=== PATIENT | female | born 1970 | race Caucasian/White ===

== ENCOUNTER 2017-08-21 04:08 | Inpatient (IN) | payer OTHER ==
--- NOTE | 2017-08-21 04:36 | ED Physician Documentation ---
PD HPI ABD PAIN - Stated complaint Stated Complaint: ABD PX - Chief complaint Chief Complaint: Abd Pain - History obtained from History obtained from: Patient - History of Present Illness Timing - onset: How many days ago (2-3) Timing - duration: Days Timing - details: Gradual onset, Waxing and waning Pain level max: 10 Pain level now: 10 Quality: Pain Location: All over / everywhere Radiation: Lower back Improved by: Laying still Worsened by: Moving, Palpation Associated symptoms: Fever (subjective (felt as though she had a fever last night but has not taken her temperature at home)), Nausea, Vomiting. No: Diarrhea, Constipation Similar symptoms before: Has not had sx before Recently seen: Not recently seen Review of Systems Constitutional: reports: Fever (subjective), Chills, Sweats Eyes: reports: Reviewed and negative Ears: reports: Reviewed and negative Nose: reports: Reviewed and negative Throat: reports: Reviewed and negative Cardiac: reports: Reviewed and negative Respiratory: reports: Reviewed and negative GI: reports: Abdominal Pain, Nausea, Vomiting. denies: Abdominal Swelling, Constipation, Diarrhea : denies: Dysuria, Frequency Skin: reports: Reviewed and negative Musculoskeletal: reports: Back pain (abdominal pain radiates to the back) Neurologic: reports: Reviewed and negative PD PAST MEDICAL HISTORY - Past Medical History Past Medical History: Yes Endocrine/Autoimmune: HyPOthyroidism - Past Surgical History Past Surgical History: No - Present Medications Home Medications: Ambulatory Orders Medication Instructions Recorded Confirmed Levothyroxine Sodium 175 mcg PO QDAC 08/21/17 08/21/17 [Levothyroxine Sodium] - Allergies Allergies/Adverse Reactions: Allergies Allergy/AdvReac Type Severity Reaction Status Date / Time No Known Drug Allergies Allergy Verified 08/21/17 04:17 - Social History Does the pt smoke?: No Smoking Status: Never smoker Does the pt drink ETOH?: No Does the pt have substance abuse?: No - Immunizations Immunizations are current?: Yes PD ED PE NORMAL - Vitals Vital signs reviewed: Yes - General General: Alert and oriented X 3, Well developed/nourished, Other (obvious painful distress) - HEENT HEENT: Moist mucous membranes - Neck Neck: Supple, no meningeal sign - Cardiac Cardiac: RRR, No murmur - Respiratory Respiratory: No respiratory distress, Clear bilaterally - Abdomen Abdomen: Soft - Back Back: No CVA TTP - Derm Derm: Normal color, Warm and dry - Extremities Extremities: No edema PD ED PE EXPANDED - Abdomen Abdomen: Tender to palpation, Rebound, Guarding, Generalized/diffuse Results - Vitals Vitals: Vital Signs - 24 hr 08/21/17 08/21/17 08/21/17 04:12 05:43 05:58 Temperature 36.4 C L Heart Rate 88 108 H 76 Respiratory 22 20 18 Rate Blood Pressure 140/80 H 126/76 O2 Saturation 99 100 95 08/21/17 07:30 Temperature Heart Rate 84 Respiratory 16 Rate Blood Pressure 105/69 O2 Saturation 95 Oxygen O2 Source Room air - Labs Labs: Laboratory Tests 08/21/17 08/21/17 04:28 04:28 WBC 11.9 H RBC 4.25 Hgb 12.5 Hct 37.0 MCV 87.2 MCH 29.3 MCHC 33.6 RDW 13.7 Plt Count 221 MPV 9.1 Neut # 10.2 H Lymph # 1.1 L Edmonson # 0.6 Eos # 0.0 Baso # 0.0 Absolute Nucleated RBC 0.00 Nucleated RBC % 0.0 Sodium 132 L Potassium 3.5 Chloride 102 Carbon Dioxide 18 L Anion Gap 12.0 BUN 12 Creatinine 0.6 Estimated GFR (MDRD) 107 Glucose 150 H Calcium 8.9 Total Bilirubin 0.4 AST 25 ALT 31 Alkaline Phosphatase 44 Total Protein 7.5 Albumin 4.0 Globulin 3.5 Albumin/Globulin Ratio 1.1 Lipase 11 L - Rads (name of study) CT A/P Radiology: Prelim report reviewed, See rad report PD MEDICAL DECISION MAKING - ED course Complexity details: reviewed results, re-evaluated patient, considered differential, d/w patient Departure - Departure Disposition: ED Transfer to [facility] Clinical Impression: Appendicitis Qualifiers: Appendicitis type: acute appendicitis Acute appendicitis type: with generalized peritonitis Qualified Code(s): K35.2 - Acute appendicitis with generalized peritonitis Condition: Stable
[2017-08-21] MEDS ORDERED: SODIUM CHLORIDE 0.9% 1,000 ML IV STA ×2 (04:42→07:58)
[2017-08-21] MEDS ORDERED: HYDROmorphone 1 MG/ML CARPUJECT IVP STA ×3 (04:42→07:24)
[2017-08-21] MEDS ORDERED: ONDANSETRON 4 MG/2 ML VIAL IVP STA (04:42)
[2017-08-21 04:52] LABS: BASOPHILS % (AUTO) 0.3 %; EOSINOPHILS % (AUTO) 0.1 %; HGB - HEMOGLOBIN 12.5 g/dL (12.0-16.0); LYMPHOCYTES # (AUTO) 1.1 10^3/uL (1.5-3.5); LYMPHOCYTES % (AUTO) 8.9 %; MEAN CORPUSCULAR HEMOGLOBIN 29.3 pg (27.0-31.0); MEAN CORPUSCULAR HGB CONC 33.6 g/dL (32.0-36.0); MEAN CORPUSCULAR VOLUME 87.2 fL (81.0-99.0); MEAN PLATELET VOLUME 9.1 fL (7.9-10.8); MONOCYTES # (AUTO) 0.6 10^3/uL (0.0-1.0); MONOCYTES % (AUTO) 4.8 %; NEUTROPHILS # (AUTO) 10.2 10^3/uL (1.5-6.6); NEUTROPHILS % (AUTO) 85.9 %; PLT - PLATELET COUNT 221 10^3/uL (130-450); RED BLOOD COUNT 4.25 10^6/uL (4.20-5.40); RED CELL DISTRIBUTION WIDTH 13.7 % (12.0-15.0); WHITE BLOOD COUNT 11.9 x10^3/uL (4.8-10.8)
[2017-08-21 04:56] LABS: ALBUMIN/GLOBULIN RATIO 1.1 (1.0-2.2); BILIRUBIN,TOTAL 0.4 mg/dL (0.2-1.0); CALCIUM 8.9 mg/dL (8.5-10.3); CREATININE 0.6 mg/dL (0.4-1.0); TOTAL PROTEIN 7.5 g/dL (6.7-8.2)
[2017-08-21] MEDS ORDERED: IOPAMIDOL-300 100 ML VIAL ONE (05:19)
[2017-08-21] MEDS ORDERED: IOPAMIDOL-300 100 ML VIAL IVP ONE (05:43)
--- NOTE | 2017-08-21 05:54 | CT Report ---
EXAM: CT ABDOMEN AND PELVIS EXAM DATE: 08/21/2017 05:43 AM. CLINICAL HISTORY: Abdominal pain with nausea, vomiting, and constipation. COMPARISONS: None. TECHNIQUE: Routine helical CT imaging was performed through the abdomen and pelvis. IV contrast: 100 ML ISOVUE 300. Enteric contrast: No. Reconstructions: Coronal and sagittal. In accordance with CT protocol optimization, one or more of the following dose reduction techniques w ere utilized for this exam: automated exposure control, adjustment of mA and/or KV based on patient s ize, or use of iterative reconstructive technique. FINDINGS: Lung Bases: Mild bibasilar atelectasis. Liver: No focal lesion identified. Gallbladder/Bile Ducts: Unremarkable. Spleen: Normal. Pancreas: Normal. Adrenal Glands: Normal. Kidneys: Normal. No masses or hydronephrosis. Peritoneal Cavity/Bowel: Mild amount of free fluid in the abdomen and pelvis. Small amount of free in traperitoneal air. No diverticulitis seen. There may be some colonic diverticula, however. No small b owel obstruction. Normal-sized mesenteric and retroperitoneal lymph nodes. Probable dilated inflamed appendix measuring up to 1.7 cm. Suspect appendiceal perforation. Organized abscess is not seen. Pelvic Organs: Normal. The bladder and visualized pelvic organs are within normal limits. Vasculature: Mild atherosclerosis. No aneurysm seen. Bones: Incomplete segmentation at T10-T11. Other: None. IMPRESSION: 1. There appears to be a dilated inflamed appendix measuring up to 1.7 cm consistent with appendiciti s. 2. Free fluid seen in the abdomen and pelvis. Free intraperitoneal air, including bubbles of air unde r the right hemidiaphragm. Findings are presumably due to perforated appendicitis. 3. Organized abscess is not seen. RADIA The above findings were discussed with Dr. Marino by Dr. Feng Springer at 05:50 hrs on 08/21/17. Referring Provider Line: [phone] SITE ID: [id number]
[2017-08-21] MEDS ORDERED: PIPERACILLIN/TAZOBACTAM 3.375 GM in SODIUM CHLORIDE 0.9% MINIBAG 100 ML IV STA (06:04)
[2017-08-21] MEDS ORDERED: metroNIDAZOLE 500 MG/100 ML 500 MG/100 ML BAG IV STA (06:04)
--- NOTE | 2017-08-21 07:36 | CONSULTATION NOTE ---
Referring Provider Name of Referring Provider:: Dr. Bipin Marino Consult Date: 08/21/17 Chief Complaint - Chief Complaint Chief Complaint: Unremitting right lower quadrant pain History of Present Illness - Admitted From Admitted From:: ED [facility] - History Obtained From Records Reviewed: Yes History obtained from: Patient and Dr. Marino Exam Limitations: None. - History of Present Illness HPI Comment/Other: Dr. Bipin Marino asked that I see this very pleasant 39-year-old female after CT scan showed ruptured appendicitis as a cause of her right lower quadrant pain. The patient states that the pain started on and she thought it was just gas. It did not improve and in fact worsened and localized to the right lower quadrant. There is no significant nausea and vomiting but there was some anorexia. She never had this pain before. There is no hematemesis, melena, or hematochezia. There is no dysuria or gynecologic issues. History - Past Medical History Cardiovascular: reports: None Respiratory: reports: None Neuro: reports: None Endocrine/Autoimmune: reports: HyPOthyroidism GI: reports: None GEOGRAPHY INSTRUCTOR: reports: None : reports: None HEENT: reports: None Psych: reports: None Musculoskeletal: reports: None Derm: reports: None MRSA Hx?: No Meds/Allgy - Home Medications Home Medications: Ambulatory Orders Medication Instructions Recorded Confirmed Levothyroxine Sodium 175 mcg PO QDAC 08/21/17 08/21/17 [Levothyroxine Sodium] - Allergies Allergies/Adverse Reactions: Allergies Allergy/AdvReac Type Severity Reaction Status Date / Time No Known Drug Allergies Allergy Verified 08/21/17 04:17 Review of Systems - Constitutional Constitutional: reports: Malaise. denies: Fatigue, Fever - Eyes Eyes: denies: Pain - Ears, Nose & Throat Ears, Nose & Throat: denies: Ear pain, Hearing loss - Cardiovascular Cariovascular: denies: Irregular heart rate, Palpitations, Chest pain - Respiratory Respiratory: denies: Cough - Gastrointestinal Gastrointestinal: reports: Abdominal pain. denies: Constipation, Diarrhea, Black stools, Bloody stools, Bile emesis, Romel blood emesis, Coffee grounds emesis - Genitourinary Genitourinary: denies: Dysuria - Musculoskeletal Musculoskeletal: denies: Muscle pain - Integumentary Integumentary: reports: Dryness. denies: Rash - Neurological Neurological: denies: General weakness, Focal weakness Exam - Vital Signs Reviewed Vital Signs: Yes Vital Signs: Vital Signs x48h Temp Pulse Resp BP Pulse Ox 08/21/17 05:58 76 18 126/76 95 08/21/17 05:43 108 H 20 100 08/21/17 04:12 36.4 C L 88 22 140/80 H 99 - Physical Exam General Appearance: positive: No acute distress, Other (Very dehydrated.) Eyes Bilateral: positive: No lid inflammation, Conjunctivae nml, No scleral icterus ENT: positive: Dry mucous membranes Neck: positive: Trachea midline Respiratory: positive: Chest non-tender, No respiratory distress, Breath sounds nml Cardiovascular: positive: Regular rate & rhythm Abdomen: positive: Tenderness (At McBurney's point and just slightly below this. Definitely peritoneal findings with some guarding.) Skin: positive: Color nml Extremities: positive: Nml appearance Neurologic/Psychiatric: positive: Oriented x3 Conclusion/Plan - Diagnosis Diagnosis: Acute perforated appendicitis - Plan Plan: Laparoscopic appendectomy, possible open appendectomy, probable placement of drain. The indications, procedure, alternatives including no surgery, possible risks including infection (deep or superficial), bleeding requiring transfusion (with all of its risks), and were fully explained to the patient and all questions answered. I also explained the pathophysiology. I explained that following the surgery I did not want her lifting anything over 15 pounds for 6 weeks to allow for optimal healing and to decrease the likelihood that a hernia would occur. All questions were fully answered. Verbal and written consent was obtained. The patient, in preparation for surgery will be nothing by mouth , and has received 3.375 g of Zosyn and 250 mg Flagyl. I asked her to contact me with any surgical questions and her concerns and she stated that she would. I asked her to let me know if there is any way we can make her stay at [facility] more comfortable and she stated that she would let me know. Attestation: For perforated appendicitis studies in the late showed that the average length of stay for laparoscopic appendectomy for perforated appendicitis was slightly over 5 days whereas the average length of stay for an open appendectomy was slightly over 7 days. Many of these studies were then repeated in the 20-teens and found that the average length of stay for laparoscopic appendectomy for perforated appendix was in the neighborhood of about 72 hours. This however came with a 20% chance of significant morbidity including abscess and prolonged surgical ileus. Depending on the operative findings and her postoperative course it is not unreasonable to surmise that she will stay less than 96 hours. And 96 hours, if she is still in the hospital , I will reevaluate for discharge or transfer. 45 minutes of [id number] time spent with the patient, over 80% in discussion and coordination of her care Shayla disclaimer: This document was created in part using voice recognition technology. Because of the inherent limitations of the system ([employer] Dictate user manual states that the licensee understands that speech recognition is a statistical process and that recognition errors are inherent in the process), occasional same sounding word substitutions and grammatical errors do occur and persist despite proofreading. Please read this document for context. - Lab Results Lab results reviewed: Yes Soy Bones: 08/21/17 04:28 08/21/17 04:28 - Diagnostic Imaging Results Diagnostic Imaging Results: positive: Final report reviewed, Read independently
[2017-08-21] MEDS ORDERED: BUPIVACAINE 0.5%-EPI 1:200000 PF 10 ML VIAL ONE (08:13)
[2017-08-21] MEDS ORDERED: SODIUM CHLORIDE 0.9% 1,000 ML IV ONE (08:24)
[2017-08-21] MEDS ORDERED: ROCURONIUM 50 MG/5 ML VIAL IVP ONE (09:00)
[2017-08-21] MEDS ORDERED: LIDOCAINE-MPF 2% 5 ML VIAL IM ONE (09:00)
[2017-08-21] MEDS ORDERED: ePHEDrine 50 MG/ML AMP IVP ONE (09:00)
[2017-08-21] MEDS ORDERED: ACETAMINOPHEN 1,000 MG/100 ML 100 ML IV ONE (09:00)
[2017-08-21] MEDS ORDERED: NEOSTIGMINE 1 MG/1 ML 10 ML MDV IVP ONE (09:00)
[2017-08-21] MEDS ORDERED: fentaNYL 250 MCG/5 ML VIAL IVP ONE (09:00)
[2017-08-21] MEDS ORDERED: PROPOFOL 200 MG/20 ML VIAL IVP ONE (09:00)
[2017-08-21] MEDS ORDERED: GLYCOPYRROLATE 1 MG/5 ML VIAL IVP ONE (09:00)
[2017-08-21] MEDS ORDERED: DEXAMETHASONE 4 MG/ML VIAL IVP ONE (09:00)
[2017-08-21] MEDS ORDERED: SUCCINYLCHOLINE 200 MG/10 ML VIAL IVP ONE (09:00)
[2017-08-21] MEDS ORDERED: BUPIVACAINE 0.5%-EPI 1:200000 PF 30 ML VIAL SUBQ ONE ×2 (09:03)
[2017-08-21] MEDS ORDERED: LACTATED RINGERS 1,000 ML IV ONE (09:20)
--- NOTE | 2017-08-21 09:57 | OPERATIVE REPORT ---
Operative Report - General Admit Date: 08/21/17 Planned Procedure: Laparoscopic appendectomy and placement of drain, possible open appendectom Pre-Op Diagnosis: Perforated appendicitis with peritonitis Procedure Performed: Laparoscopic appendectomy and placement of drain Post Op Diagnosis: Perforated acute appendicitis with fecal peritonitis - Procedure Note Primary Surgeon: Shadi Garcia MD Anesthesia Provider: Mark Linton CRNA Anesthesia Technique: General ET tube, Local (20 mL of half percent Marcaine with epinephrine) IV Fluids (mL): 1,200 Estimated Blood Loss (mL): 5 Drain/Tube Type: London drain (19 Yi London drain along the left right pelvic and abdominal wall) Complications: None. - Other Other Information/Narrative: OPERATIVE DESCRIPTION/REPORT: After verbal and written informed consent was obtained detailing the risks of infection, bleeding requiring transfusion with its risks, and , and after I met with the patient confirming the surgery and the site of the surgery, the patient was brought to the operative suite and placed supine on the operating table. Great care was taken to avoid pressure points to prevent pressure necrosis or nerve injury. Monitoring devices were applied along with TEDs and pneumatic compressive stockings (to prevent DVT). The patient received preoperative antibiotics for surgical prophylaxis. Mark Linton CRNA sedated and anesthetized the patient for the entire procedure. The patient was prepped and draped in the usual sterile manner. With the patient draped my initials were clearly visible. A "time in" then confirmed that the patient was identified with 3 identifiers (name, date and medical record number), the history and physical was in the chart, the signed consent confirming the procedure was in the chart, the patient was in the correct position, the aforementioned prophylactic measures were in place or given, we had the correct personnel and equipment to complete the procedure and that anesthesia, surgery and nursing were given an opportunity to express any concerns. With the agreement of everyone in the room, we proceeded with the operation. A 2 cm umbilical midline incision was made. The fascia was then cleared of subcutaneous tissue using a tonsil clamp. A 2 cm incision was then made in the fascia gaining entry into the abdominal cavity without incident. A 12 mm blunt tipped balloon tipped Efrain port was placed into the abdomen and the balloon inflated to keep it in place. The pneumoperitoneum was then established using carbon dioxide insufflation to a steady state pressure of 12 mmHg. Two additional 5 mm ports were placed in the midline above and below the umbilicus. The patient was then rotated slightly to their left and slightly head down ( Trendelenberg). There was a massive amount of thick green purulence throughout the abdomen and a photograph was taken of this. It extended from the pelvis to above the liver. The appendix was matted and adhesed down to the cecum and with traction and counter-traction the mesentery was visualized. The mesentary was transected using serial application of the Ligasure thus freeing up the appendix. When the end of the appendix was lifted it revealed the base of the appendix where it was draining into the cecum as well as the hole in the appendix and the appendicolith that had fallen out of the hole. The base of the appendix and mesentery were then stapled and transected using a laparoscopic vascular stapler. Visualization of the staple line revealed absolutely no bleeding or leak of bowel contents. The appendix and the appendicotih was then placed into an endopouch for the remainder of the case. The patient was then rotated to lie flat. No cultures were done of the purulence because the patient had leaked stool into the peritoneal cavity and cultures would have come back positive for colonic rito. Because of this massive contamination, the abdomen was copiously irrigated with 3 liters of first normal saline and then lactated ringers. By the end the effluent was returning clear. The fascia and skin were then injected with the 20 cc of % marcaine with epinephrine for pain control. A 19 Fr London drain was inserted into the lower 5 mm port and the port removed. Laparoscopically the drain was placed into the pelvis and the going up the right abdominal wall along the white line of Toldt. The drain was secured to the skin with a 3-0 Nylon which was Issa-sandaled about the drain. The insufflation was released and the ports removed. With the removal of the umbilical port the Endopouch containing the appendix and the appendicolith was also removed. The fascial defect was then approximated using 0-Vicryl suture in a simple interrupted manner taking care to bury the knots. The skin incisions were approximated with 4-0 Monocryl in a subcuticular fashion. The surgical prep was removed, and the skin closures were strengthened with Dermabond. At this point a time out was performed that confirmed that all the counts were correct, the procedure that was performed, the blood loss, the urine output, the IV fluids administered, and the patients condition. Having tolerated the procedure well, the patient was subsequently extubated and taken to recovery room in good and stable condition. Dragon disclaimer: This document was created in part using voice recognition technology. Because of the inherent limitations of the system ([employer] Dictate user manual states that the licensee understands that speech recognition is a statistical process and that recognition errors are inherent in the process), occasional same sounding word substitutions and grammatical errors do occur and persist despite proofreading. Please read this document for context.
[2017-08-21 09:59] LABS: HCG UR QUAL NEGATIVE
[2017-08-21] MEDS: D5NS W/20 MEQ KCL 1,000 ML IV SCH (11:35)
[2017-08-21] MEDS: PIPERACILLIN/TAZOBACTAM 3.375 GM in SODIUM CHLORIDE 0.9% MINIBAG 100 ML IV SCH ×2 (11:56→18:17)
[2017-08-21] MEDS: metroNIDAZOLE 500 MG/100 ML 500 MG/100 ML BAG IV SCH ×2 (14:11→22:01)
[2017-08-21] MEDS: GENTAMICIN 350 MG in SODIUM CHLORIDE 0.9% 100ML 100 ML IV SCH (14:59)
[2017-08-21] MEDS: HYDROmorphone 1 MG/ML CARPUJECT IVP PRN ×3 (15:52→20:54)
[2017-08-21] MEDS: SODIUM CHLORIDE FLUSH 0.9% 10 ML SYRINGE IVP SCH (15:52)
[2017-08-21] MEDS: ONDANSETRON 4 MG/2 ML VIAL IVP PRN (22:01)
[2017-08-22] MEDS: HYDROmorphone 1 MG/ML CARPUJECT IVP PRN ×5 (00:18→21:58)
[2017-08-22] MEDS: PIPERACILLIN/TAZOBACTAM 3.375 GM in SODIUM CHLORIDE 0.9% MINIBAG 100 ML IV SCH ×5 (00:20→23:58)
[2017-08-22] MEDS: D5NS W/20 MEQ KCL 1,000 ML IV SCH ×2 (00:21→12:08)
[2017-08-22] MEDS: SODIUM CHLORIDE FLUSH 0.9% 10 ML SYRINGE IVP SCH ×4 (00:22→23:59)
[2017-08-22 05:57] LABS: BASOPHILS % (AUTO) 0.2 %; EOSINOPHILS % (AUTO) 0.2 %; HGB - HEMOGLOBIN 10.7 g/dL (12.0-16.0); LYMPHOCYTES # (AUTO) 0.9 10^3/uL (1.5-3.5); LYMPHOCYTES % (AUTO) 8.9 %; MEAN CORPUSCULAR HEMOGLOBIN 28.6 pg (27.0-31.0); MEAN CORPUSCULAR HGB CONC 32.2 g/dL (32.0-36.0); MEAN CORPUSCULAR VOLUME 88.8 fL (81.0-99.0); MEAN PLATELET VOLUME 8.9 fL (7.9-10.8); MONOCYTES # (AUTO) 0.6 10^3/uL (0.0-1.0); MONOCYTES % (AUTO) 6.1 %; NEUTROPHILS # (AUTO) 8.6 10^3/uL (1.5-6.6); NEUTROPHILS % (AUTO) 84.6 %; PLT - PLATELET COUNT 215 10^3/uL (130-450); RED BLOOD COUNT 3.73 10^6/uL (4.20-5.40); RED CELL DISTRIBUTION WIDTH 14.3 % (12.0-15.0); WHITE BLOOD COUNT 10.2 x10^3/uL (4.8-10.8)
[2017-08-22 06:07] LABS: ALBUMIN 2.8 g/dL (3.2-5.5); ALBUMIN/GLOBULIN RATIO 0.9 (1.0-2.2); BILIRUBIN,TOTAL 0.5 mg/dL (0.2-1.0); CALCIUM 7.4 mg/dL (8.5-10.3); CREATININE 0.7 mg/dL (0.4-1.0); TOTAL PROTEIN 5.8 g/dL (6.7-8.2)
[2017-08-22] MEDS: metroNIDAZOLE 500 MG/100 ML 500 MG/100 ML BAG IV SCH ×3 (06:14→21:58)
[2017-08-22 13:04] LABS: BILIRUBIN,URINE NEGATIVE (NEGATIVE); GLUCOSE, URINE (UA) NEGATIVE (NEGATIVE); KETONES,URINE (UA) TRACE mg/dL (NEGATIVE); LEUKOCYTE ESTERASE, URINE NEGATIVE (NEGATIVE); NITRITE,URINE NEGATIVE (NEGATIVE); OCCULT BLOOD,URINE SMALL (NEGATIVE); PROTEIN,URINE 30 mg/dL (NEGATIVE); UROBILINOGEN,URINE 0.2 (NORMAL) E.U./dL (NORMAL)
[2017-08-22 13:05] LABS: CLARITY,URINE SL. CLOUDY (CLEAR)
[2017-08-22 13:15] LABS: BACTERIA,URINE Moderate /HPF (None Seen); RBC,URINE 0-5 /HPF (0-5); SQUAMOUS EPITHELIAL CELL,UR MOD Squamous (<= Few)
--- NOTE | 2017-08-22 13:53 | PROVIDER PROGRESS NOTE ---
Subjective - General Admit Date: 08/21/17 Procedure Date: 08/21/17 Post Op Days: 1 Procedure Performed: Laparoscopic appendectomy with placement drain - Review of Systems Wound/Incisions: positive: Other (Slight ecchymosis.) General: positive: Malaise. negative: Appetite HEENT: positive: No symptoms Pulmonary: positive: No symptoms Cardiovascular: positive: No symptoms Gastrointestinal: positive: Abdominal pain (Improved.) Genitourinary: positive: Retention (Measured 300 mL urinated 200 mL. Will follow.) Musculoskeletal: positive: No symptoms Skin: positive: No symptoms Psychiatric: positive: No symptoms Objective - Patient Data Reviewed Vital Signs: Yes Vital Signs: Vital Signs x48h Temp Pulse Resp BP Pulse Ox 08/22/17 07:27 37.3 C 80 19 96/56 L 100 Weight: Weight 08/20/17 08/21/17 08/22/17 23:59 23:59 23:59 Weight (kg) 49.8 kg Intake & Output: Intake and Output Totals x24h 08/20/17 08/21/17 08/22/17 23:59 23:59 23:59 Intake Total 3858.75 1375 Output Total 280 665 Balance 3578.75 710 - Lab Results Lab Results: 08/22/17 05:50 08/22/17 05:50 Other Lab Results: Lab Results x24hrs 08/22/17 08/22/17 08/22/17 Range/Units 13:01 05:50 05:50 WBC 10.2 (4.8-10.8) x10^3/uL RBC 3.73 L (4.20-5.40) 10^6/uL Hgb 10.7 L (12.0-16.0) g/dL Hct 33.2 L (37.0-47.0) % MCV 88.8 (81.0-99.0) fL MCH 28.6 (27.0-31.0) pg MCHC 32.2 (32.0-36.0) g/dL RDW 14.3 (12.0-15.0) % Plt Count 215 (130-450) 10^3/uL MPV 8.9 (7.9-10.8) fL Neut # 8.6 H (1.5-6.6) 10^3/uL Lymph # 0.9 L (1.5-3.5) 10^3/uL [place] # 0.6 (0.0-1.0) 10^3/uL Eos # 0.0 (0.0-0.7) 10^3/uL Baso # 0.0 (0.0-0.1) 10^3/uL Absolute Nucleated RBC 0.00 x10^3/uL Nucleated RBC % 0.0 /100WBC Sodium 133 L (135-145) mmol/L Potassium 4.3 (3.5-5.0) mmol/L Chloride 108 (101-111) mmol/L Carbon Dioxide 21 (21-32) mmol/L Anion Gap 4.0 L (6-13) BUN 12 (6-20) mg/dL Creatinine 0.7 (0.4-1.0) mg/dL Estimated GFR (MDRD) 89 (>89) Glucose 112 H (70-100) mg/dL Calcium 7.4 L (8.5-10.3) mg/dL Total Bilirubin 0.5 (0.2-1.0) mg/dL AST 18 (10-42) IU/L ALT 19 (10-60) IU/L Alkaline Phosphatase 25 L (42-121) IU/L Total Protein 5.8 L (6.7-8.2) g/dL Albumin 2.8 L (3.2-5.5) g/dL Globulin 3.0 (2.1-4.2) g/dL Albumin/Globulin Ratio 0.9 L (1.0-2.2) Urine Color DARK YELLOW Urine Clarity SL. CLOUDY (CLEAR) Urine pH 5.0 (5.0-7.5) PH Ur Specific [employer] [place] >=1.030 H (1.002-1.030) Urine Protein 30 H (NEGATIVE) mg/dL Urine Glucose (UA) NEGATIVE (NEGATIVE) mg/dL Urine Ketones TRACE (NEGATIVE) mg/dL Urine Occult Blood SMALL H (NEGATIVE) Urine Nitrite NEGATIVE (NEGATIVE) Urine Bilirubin NEGATIVE (NEGATIVE) Urine Urobilinogen 0.2 (NORMAL) (NORMAL) E.U./dL Ur Leukocyte Esterase NEGATIVE (NEGATIVE) Urine RBC 0-5 (0-5) /HPF Urine WBC 0-3 (0-5) /HPF Ur Squamous Epith Cells MOD Squamous H (<= Few) Urine Bacteria Moderate H (None Seen) /HPF Ur Microscopic Review INDICATED Urine Culture Comments NOT INDICATED Random Gentamicin ug/mL 08/21/17 Range/Units 22:05 WBC (4.8-10.8) x10^3/uL RBC (4.20-5.40) 10^6/uL Hgb (12.0-16.0) g/dL Hct (37.0-47.0) % MCV (81.0-99.0) fL MCH (27.0-31.0) pg MCHC (32.0-36.0) g/dL RDW (12.0-15.0) % Plt Count (130-450) 10^3/uL MPV (7.9-10.8) fL Neut # (1.5-6.6) 10^3/uL Lymph # (1.5-3.5) 10^3/uL [place] # (0.0-1.0) 10^3/uL Eos # (0.0-0.7) 10^3/uL Baso # (0.0-0.1) 10^3/uL Absolute Nucleated RBC x10^3/uL Nucleated RBC % /100WBC Sodium (135-145) mmol/L Potassium (3.5-5.0) mmol/L Chloride (101-111) mmol/L Carbon Dioxide (21-32) mmol/L Anion Gap (6-13) BUN (6-20) mg/dL Creatinine (0.4-1.0) mg/dL Estimated GFR (MDRD) (>89) Glucose (70-100) mg/dL Calcium (8.5-10.3) mg/dL Total Bilirubin (0.2-1.0) mg/dL AST (10-42) IU/L ALT (10-60) IU/L Alkaline Phosphatase (42-121) IU/L Total Protein (6.7-8.2) g/dL Albumin (3.2-5.5) g/dL Globulin (2.1-4.2) g/dL Albumin/Globulin Ratio (1.0-2.2) Urine Color Urine Clarity (CLEAR) Urine pH (5.0-7.5) PH Ur Specific [employer] (1.002-1.030) Urine Protein (NEGATIVE) mg/dL Urine Glucose (UA) (NEGATIVE) mg/dL Urine Ketones (NEGATIVE) mg/dL Urine Occult Blood (NEGATIVE) Urine Nitrite (NEGATIVE) Urine Bilirubin (NEGATIVE) Urine Urobilinogen (NORMAL) E.U./dL Ur Leukocyte Esterase (NEGATIVE) Urine RBC (0-5) /HPF Urine WBC (0-5) /HPF Ur Squamous Epith Cells (<= Few) Urine Bacteria (None Seen) /HPF Ur Microscopic Review Urine Culture Comments Random Gentamicin 3.4 ug/mL - Current Medications Current Medications: Current Medications Generic Name Dose Route Start Last Admin Trade Name Freq PRN Reason Stop Dose Admin Hydromorphone HCl 1 mg 08/21/17 09:54 08/22/17 08:55 Dilaudid Inj Carp IVP 1 mg Q1HR PRN Administration PAIN Potassium Chloride/Dextrose/Sod Cl 1,000 mls @ 100 mls/hr 08/21/17 11:30 12:08 IV 100 mls/hr .Q10H REINALDO Administration Gentamicin Sulfate 350 mg/ 108.75 mls @ 108.75 mls/hr 08/21/17 14:00 16:13 Sodium Chloride IV 08/27/17 14:59 Infused Q24H REINALDO Infusion Protocol Metronidazole 500 mg in 100 mls @ 100 mls/hr 08/21/17 14:00 08/22/17 13:03 Flagyl 500 Mg/100 Ml IV 100 mls/hr Q8HR REINALDO Administration Piperacillin Sod/Tazobactam 100 mls @ 200 mls/hr 08/21/17 12:00 08/22/17 13: 05 Sod 3.375 gm/ Sodium Chloride IV Infused Q6HR REINALDO Infusion Ondansetron HCl 4 mg 08/21/17 09:53 08/21/17 22:01 Zofran Inj IVP 4 mg Q4HR PRN Administration Nausea / Vomiting Sodium Chloride 10 ml 08/21/17 17:00 08/22/17 00:22 Normal Saline Flush 0.9% IVP Not Given 0100,0900,1700 [facility] - Physical Exam Wound/Incisions: positive: Other (Ecchymosis. Drain is draining light green thin fluid.) General Appearance: positive: No acute distress Eyes Bilateral: positive: No lid inflammation, Conjunctivae nml, No scleral icterus ENT: positive: Dry mucous membranes Neck: positive: Trachea midline Respiratory: positive: Chest non-tender, No respiratory distress, Breath sounds nml Cardiovascular: positive: Regular rate & rhythm Abdomen: positive: Tenderness (Incisional and better than before.) Skin: positive: Color nml Extremities: positive: Non-tender, Nml appearance Neurologic/Psychiatric: positive: Oriented x3 Impression/Plan - Problem List Problem List: D1 s/p laparoscopic appendectomy and placement of drain for perforated appendicitis with fecalent peritonitis 1) FEN Continue IVF and clear liquid diet as tolerated. Slightly dehydrated clinically. 2) ID Continue triple antibiotics. D2/10 Zosyn/Gent/Flagyl. Drainage is mildly concerning. Patient is at a 20% risk of morbidity due to perforation. 3) Pain Controlled with current regimen. 4) Some retention - may be due to Dilaudid or perforated appendix with fecalent peritonitis. Expect it will get better with time. 5) DVT Ambulation should prevent. Will continue to follow.
[2017-08-22] MEDS: GENTAMICIN 350 MG in SODIUM CHLORIDE 0.9% 100ML 100 ML IV SCH (14:25)
[2017-08-22] MEDS: ACETAMINOPHEN 1,000 MG/100 ML 100 ML IV SCH ×2 (18:38→23:28)
[2017-08-23] MEDS: D5NS W/20 MEQ KCL 1,000 ML IV SCH ×3 (03:26→20:19)
[2017-08-23] MEDS: ONDANSETRON 4 MG/2 ML VIAL IVP PRN ×3 (03:51→19:06)
[2017-08-23] MEDS: HYDROmorphone 1 MG/ML CARPUJECT IVP PRN ×4 (03:51→19:53)
[2017-08-23] MEDS: ACETAMINOPHEN 1,000 MG/100 ML 100 ML IV SCH ×4 (04:55→22:39)
[2017-08-23] MEDS: PIPERACILLIN/TAZOBACTAM 3.375 GM in SODIUM CHLORIDE 0.9% MINIBAG 100 ML IV SCH ×3 (05:21→18:57)
[2017-08-23] MEDS: metroNIDAZOLE 500 MG/100 ML 500 MG/100 ML BAG IV SCH ×3 (05:54→21:35)
[2017-08-23] MEDS: SODIUM CHLORIDE FLUSH 0.9% 10 ML SYRINGE IVP SCH ×2 (10:57→14:52)
[2017-08-23] MEDS: GENTAMICIN 350 MG in SODIUM CHLORIDE 0.9% 100ML 100 ML IV SCH (13:46)
--- NOTE | 2017-08-23 15:29 | PROVIDER PROGRESS NOTE ---
Subjective - General Admit Date: 08/21/17 Procedure Date: 08/21/17 Post Op Days: 2 Procedure Performed: Laparoscopic appendectomy with placement drain - Review of Systems Wound/Incisions: positive: Other (Ecchymosis. Drain is draining light green thin fluid.) Drain Type: [place] Drain Output Description: Serous Approximate mls Output: 320 General: positive: Other (Easier to get out of bed today as opposed to yesterday.). negative: Appetite HEENT: positive: No symptoms Pulmonary: positive: No symptoms Cardiovascular: positive: No symptoms Gastrointestinal: positive: Abdominal pain (Improved.), Flatus (Small amount.) Genitourinary: positive: Retention (Measured 300 mL urinated 200 mL. Will follow.) Musculoskeletal: positive: No symptoms Skin: positive: No symptoms Psychiatric: positive: No symptoms Objective - Patient Data Reviewed Vital Signs: Yes Vital Signs: Vital Signs x48h Temp Pulse Resp BP Pulse Ox 08/23/17 07:44 36.8 C 69 20 96/59 L 97 Weight: Weight 08/21/17 08/22/17 08/23/17 23:59 23:59 23:59 Weight (kg) 49.8 kg Intake & Output: Intake and Output Totals x24h 08/21/17 08/22/17 08/23/17 23:59 23:59 23:59 Intake Total 3858.75 3803.75 900 Output Total 280 1405 1320 Balance 3578.75 2398.75 -420 - Lab Results Lab Results: 08/22/17 05:50 08/22/17 05:50 - Current Medications Current Medications: Current Medications Generic Name Dose Route Start Last Admin Trade Name Freq PRN Reason Stop Dose Admin Hydromorphone HCl 1 mg 08/21/17 09:54 08/23/17 14:51 Dilaudid Inj Carp IVP 1 mg Q1HR PRN Administration PAIN Potassium Chloride/Dextrose/Sod Cl 1,000 mls @ 100 mls/hr 08/21/17 11:30 03:26 IV 100 mls/hr .Q10H REINALDO Administration Gentamicin Sulfate 350 mg/ 108.75 mls @ 108.75 mls/hr 08/21/17 14:00 13:46 Sodium Chloride IV 08/27/17 14:59 108.75 mls/hr Q24H REINALDO Administration Protocol Metronidazole 500 mg in 100 mls @ 100 mls/hr 08/21/17 14:00 08/23/17 06:55 Flagyl 500 Mg/100 Ml IV Infused Q8HR REINALDO Infusion Piperacillin Sod/Tazobactam 100 mls @ 200 mls/hr 08/21/17 12:00 08/23/17 12: 52 Sod 3.375 gm/ Sodium Chloride IV Infused Q6HR REINALDO Infusion Acetaminophen 100 mls @ 400 mls/hr 08/22/17 17:00 08/23/17 12:23 Ofirmev IV Not Given Q6H REINALDO Ondansetron HCl 4 mg 08/21/17 09:53 08/23/17 10:56 Zofran Inj IVP 4 mg Q4HR PRN Administration Nausea / Vomiting Sodium Chloride 10 ml 08/21/17 17:00 08/23/17 14:52 Normal Saline Flush 0.9% IVP 10 ml 0100,0900,1700 REINALDO Administration - Physical Exam Wound/Incisions: positive: Healing well, Other (Slight ecchymosis still present. ) General Appearance: positive: No acute distress Eyes Bilateral: positive: No lid inflammation, Conjunctivae nml, No scleral icterus ENT: positive: Dry mucous membranes Neck: positive: Trachea midline Respiratory: positive: Chest non-tender, No respiratory distress, Breath sounds nml Cardiovascular: positive: Regular rate & rhythm Abdomen: positive: Nml bowel sounds, Other (Slight distention.) Skin: positive: Color nml Extremities: positive: Nml appearance Neurologic/Psychiatric: positive: Oriented x3 Impression/Plan - Problem List Problem List: D2 s/p laparoscopic appendectomy and placement of drain for perforated appendicitis with fecalent peritonitis 1) FEN Continue IVF and general diet as tolerated. Explained that I was okay if she ate nothing. Slightly dehydrated clinically. 2) ID Continue triple antibiotics. D3/10 Zosyn/Gent/Flagyl. Drainage is mildly concerning. Patient is at a 20% risk of morbidity due to perforation. Check CBC in AM. 3) Pain Controlled with current regimen. 4) Some retention - may be due to Dilaudid or perforated appendix with fecalent peritonitis. Expect it will get better with time. Some blood in urine but could be expected. 5) DVT Ambulation should prevent. Will continue to follow.
[2017-08-23] MEDS: SODIUM CHLORIDE FLUSH 0.9% 10 ML SYRINGE IVP PRN ×2 (19:06→19:53)
[2017-08-24] MEDS: ONDANSETRON 4 MG/2 ML VIAL IVP PRN ×3 (00:44→20:02)
[2017-08-24] MEDS: HYDROmorphone 1 MG/ML CARPUJECT IVP PRN ×4 (00:44→20:01)
[2017-08-24] MEDS: PIPERACILLIN/TAZOBACTAM 3.375 GM in SODIUM CHLORIDE 0.9% MINIBAG 100 ML IV SCH ×4 (00:44→18:09)
[2017-08-24] MEDS: SODIUM CHLORIDE FLUSH 0.9% 10 ML SYRINGE IVP PRN ×2 (00:44→20:02)
[2017-08-24] MEDS: SODIUM CHLORIDE FLUSH 0.9% 10 ML SYRINGE IVP SCH ×3 (00:44→17:18)
[2017-08-24] MEDS: D5NS W/20 MEQ KCL 1,000 ML IV SCH ×4 (01:00→20:13)
[2017-08-24] MEDS: ACETAMINOPHEN 1,000 MG/100 ML 100 ML IV SCH ×4 (04:48→22:53)
[2017-08-24] MEDS: metroNIDAZOLE 500 MG/100 ML 500 MG/100 ML BAG IV SCH ×3 (05:11→21:49)
[2017-08-24 05:26] LABS: BASOPHILS % (AUTO) 0.2 %; EOSINOPHILS # (AUTO) 0.2 10^3/uL (0.0-0.7); EOSINOPHILS % (AUTO) 1.6 %; HGB - HEMOGLOBIN 9.8 g/dL (12.0-16.0); MEAN CORPUSCULAR HEMOGLOBIN 28.7 pg (27.0-31.0); MEAN CORPUSCULAR HGB CONC 32.1 g/dL (32.0-36.0); MEAN CORPUSCULAR VOLUME 89.3 fL (81.0-99.0); MEAN PLATELET VOLUME 8.8 fL (7.9-10.8); MONOCYTES # (AUTO) 0.7 10^3/uL (0.0-1.0); MONOCYTES % (AUTO) 6.9 %; NEUTROPHILS # (AUTO) 8.9 10^3/uL (1.5-6.6); NEUTROPHILS % (AUTO) 82.3 %; PLT - PLATELET COUNT 197 10^3/uL (130-450); RED BLOOD COUNT 3.41 10^6/uL (4.20-5.40); RED CELL DISTRIBUTION WIDTH 14.4 % (12.0-15.0); WHITE BLOOD COUNT 10.9 x10^3/uL (4.8-10.8)
[2017-08-24 05:41] LABS: ALBUMIN 2.2 g/dL (3.2-5.5); ALBUMIN/GLOBULIN RATIO 0.8 (1.0-2.2); BILIRUBIN,TOTAL 0.5 mg/dL (0.2-1.0); CALCIUM 7.3 mg/dL (8.5-10.3); CREATININE 0.7 mg/dL (0.4-1.0); TOTAL PROTEIN 4.8 g/dL (6.7-8.2)
--- NOTE | 2017-08-24 09:31 | PROVIDER PROGRESS NOTE ---
Subjective - General Admit Date: 08/21/17 Procedure Date: 08/21/17 Post Op Days: 4 Procedure Performed: Laparoscopic appendectomy with placement drain - Review of Systems Wound/Incisions: positive: Healing well, Other (Slight ecchymosis still present. ) Drain Type: [place] Drain Output Description: Serous Approximate mls Output: 200 General: positive: Other (Easier to get out of bed today as opposed to yesterday.). negative: Appetite HEENT: positive: No symptoms Pulmonary: positive: No symptoms Cardiovascular: positive: No symptoms Gastrointestinal: positive: Abdominal pain (Improved.), Flatus (Small amount.) Genitourinary: positive: Retention (Measured 300 mL urinated 200 mL. Will follow.) Musculoskeletal: positive: No symptoms Skin: positive: No symptoms Psychiatric: positive: No symptoms Objective - Patient Data Reviewed Vital Signs: Yes Vital Signs: Vital Signs x48h Temp Pulse Resp BP Pulse Ox 08/24/17 07:40 36.9 C 70 20 95/60 93 Intake & Output: Intake and Output Totals x24h 08/22/17 08/23/17 08/24/17 23:59 23:59 23:59 Intake Total 3803.75 3358.75 1878.333 Output Total 1405 1710 500 Balance 2398.75 1648.75 1378.333 - Lab Results Lab Results: 08/24/17 05:20 08/24/17 05:20 Other Lab Results: Lab Results x24hrs 08/24/17 08/24/17 Range/Units 05:20 05:20 WBC 10.9 H (4.8-10.8) x10^3/uL RBC 3.41 L (4.20-5.40) 10^6/uL Hgb 9.8 L (12.0-16.0) g/dL Hct 30.5 L (37.0-47.0) % MCV 89.3 (81.0-99.0) fL MCH 28.7 (27.0-31.0) pg MCHC 32.1 (32.0-36.0) g/dL RDW 14.4 (12.0-15.0) % Plt Count 197 (130-450) 10^3/uL MPV 8.8 (7.9-10.8) fL Neut # 8.9 H (1.5-6.6) 10^3/uL Lymph # 1.0 L (1.5-3.5) 10^3/uL [place] # 0.7 (0.0-1.0) 10^3/uL Eos # 0.2 (0.0-0.7) 10^3/uL Baso # 0.0 (0.0-0.1) 10^3/uL Absolute Nucleated RBC 0.01 x10^3/uL Nucleated RBC % 0.0 /100WBC Sodium 132 L (135-145) mmol/L Potassium 4.0 (3.5-5.0) mmol/L Chloride 108 (101-111) mmol/L Carbon Dioxide 20 L (21-32) mmol/L Anion Gap 4.0 L (6-13) BUN 9 (6-20) mg/dL Creatinine 0.7 (0.4-1.0) mg/dL Estimated GFR (MDRD) 89 (>89) Glucose 94 (70-100) mg/dL Calcium 7.3 L (8.5-10.3) mg/dL Total Bilirubin 0.5 (0.2-1.0) mg/dL AST 14 (10-42) IU/L ALT 14 (10-60) IU/L Alkaline Phosphatase 34 L (42-121) IU/L Total Protein 4.8 L (6.7-8.2) g/dL Albumin 2.2 L (3.2-5.5) g/dL Globulin 2.6 (2.1-4.2) g/dL Albumin/Globulin Ratio 0.8 L (1.0-2.2) - Current Medications Current Medications: Current Medications Generic Name Dose Route Start Last Admin Trade Name Freq PRN Reason Stop Dose Admin Hydromorphone HCl 1 mg 08/21/17 09:54 08/24/17 05:51 Dilaudid Inj Carp IVP 1 mg Q1HR PRN Administration PAIN Potassium Chloride/Dextrose/Sod Cl 1,000 mls @ 100 mls/hr 08/21/17 11:30 08:44 IV 100 mls/hr .Q10H REINALDO Administration Gentamicin Sulfate 350 mg/ 108.75 mls @ 108.75 mls/hr 08/21/17 14:00 15:21 Sodium Chloride IV 08/27/17 14:59 Infused Q24H REINALDO Infusion Protocol Metronidazole 500 mg in 100 mls @ 100 mls/hr 08/21/17 14:00 08/24/17 06:22 Flagyl 500 Mg/100 Ml IV Infused Q8HR REINALDO Infusion Piperacillin Sod/Tazobactam 100 mls @ 200 mls/hr 08/21/17 12:00 08/24/17 07: 50 Sod 3.375 gm/ Sodium Chloride IV Infused Q6HR REINALDO Infusion Acetaminophen 100 mls @ 400 mls/hr 08/22/17 17:00 08/24/17 05:05 Ofirmev IV Infused Q6H REINALDO Infusion Ondansetron HCl 4 mg 08/21/17 09:53 08/24/17 05:51 Zofran Inj IVP 4 mg Q4HR PRN Administration Nausea / Vomiting Sodium Chloride 10 ml 08/21/17 17:00 08/24/17 05:52 Normal Saline Flush 0.9% IVP 10 ml 0100,0900,1700 REINALDO Administration Sodium Chloride 10 ml 08/21/17 09:46 08/24/17 00:44 Normal Saline Flush 0.9% IVP 10 ml PRN PRN Administration NEEDED PER PROVIDER ORDERS - Physical Exam Wound/Incisions: positive: Healing well (Still with ecchymosis.) General Appearance: positive: No acute distress Eyes Bilateral: positive: No lid inflammation, Conjunctivae nml, No scleral icterus ENT: positive: No signs of dehydration Neck: positive: Trachea midline Respiratory: positive: Chest non-tender, No respiratory distress, Breath sounds nml Cardiovascular: positive: Regular rate & rhythm Abdomen: positive: Nml bowel sounds Skin: positive: Color nml Extremities: positive: Nml appearance Neurologic/Psychiatric: positive: Oriented x3 Impression/Plan - Problem List Problem List: D3 s/p laparoscopic appendectomy and placement of drain for perforated appendicitis with fecalent peritonitis 1) FEN Continue IVF and general diet as tolerated. Explained that I was okay if she ate nothing. Decreased IVF. 2) ID Continue triple antibiotics. D4/10 Zosyn/Gent/Flagyl. Drainage is mildly concerning. Patient is at a 20% risk of morbidity due to perforation. 3) Pain Controlled with current regimen. 4) DVT Ambulation should prevent. Will continue to follow.
[2017-08-24] MEDS: GENTAMICIN 350 MG in SODIUM CHLORIDE 0.9% 100ML 100 ML IV SCH (12:58)
[2017-08-25] MEDS: HYDROmorphone 1 MG/ML CARPUJECT IVP PRN ×2 (00:13→04:10)
[2017-08-25] MEDS: PIPERACILLIN/TAZOBACTAM 3.375 GM in SODIUM CHLORIDE 0.9% MINIBAG 100 ML IV SCH ×3 (00:18→12:29)
[2017-08-25] MEDS: SODIUM CHLORIDE FLUSH 0.9% 10 ML SYRINGE IVP SCH ×3 (04:10→23:06)
[2017-08-25] MEDS: ACETAMINOPHEN 1,000 MG/100 ML 100 ML IV SCH ×2 (04:34→11:42)
[2017-08-25] MEDS: metroNIDAZOLE 500 MG/100 ML 500 MG/100 ML BAG IV SCH ×2 (05:07→13:27)
[2017-08-25] MEDS: D5NS W/20 MEQ KCL 1,000 ML IV SCH (11:42)
[2017-08-25] MEDS: SODIUM CHLORIDE FLUSH 0.9% 10 ML SYRINGE IVP PRN (11:43)
[2017-08-25] MEDS: GENTAMICIN 350 MG in SODIUM CHLORIDE 0.9% 100ML 100 ML IV SCH (14:45)
[2017-08-25] MEDS: ONDANSETRON 4 MG/2 ML VIAL IVP PRN (14:59)
--- NOTE | 2017-08-25 16:59 | PROVIDER PROGRESS NOTE ---
Subjective - General Admit Date: 08/21/17 Procedure Date: 08/21/17 Post Op Days: 4 Procedure Performed: Laparoscopic appendectomy with placement drain - Review of Systems Wound/Incisions: positive: Healing well (Still with ecchymosis.) Drain Type: [place] Drain Output Description: Serous Approximate mls Output: 160 General: positive: Appetite, Other (Ambulating well. Her period started today - she thinks this is why she feels a bit more "under the weather." Bowel movements have started but now with diarrhea. Feels really bloated.) HEENT: positive: No symptoms Pulmonary: positive: No symptoms Cardiovascular: positive: No symptoms Gastrointestinal: positive: Abdominal pain (Improved.) Genitourinary: positive: Retention (Measured 300 mL urinated 200 mL. Will follow.) Musculoskeletal: positive: No symptoms Skin: positive: No symptoms Psychiatric: positive: No symptoms Objective - Patient Data Reviewed Vital Signs: Yes Vital Signs: Vital Signs x48h Temp Pulse Resp BP Pulse Ox 08/25/17 15:31 36.9 C 77 20 129/85 H 99 Intake & Output: Intake and Output Totals x24h 08/23/17 08/24/17 08/25/17 23:59 23:59 23:59 Intake Total 3358.75 4521.753 1525.75 Output Total 1710 1560 2330 Balance 1648.75 2961.753 -804.25 - Lab Results Lab Results: 08/24/17 05:20 08/24/17 05:20 - Current Medications Current Medications: Current Medications Generic Name Dose Route Start Last Admin Trade Name Freq PRN Reason Stop Dose Admin Hydromorphone HCl 1 mg 08/21/17 09:54 08/25/17 04:10 Dilaudid Inj Carp IVP 1 mg Q1HR PRN Administration PAIN Gentamicin Sulfate 350 mg/ 108.75 mls @ 108.75 mls/hr 08/21/17 14:00 16:52 Sodium Chloride IV 08/27/17 14:59 Infused Q24H REINALDO Infusion Protocol Metronidazole 500 mg in 100 mls @ 100 mls/hr 08/21/17 14:00 08/25/17 14:30 Flagyl 500 Mg/100 Ml IV Infused Q8HR REINALDO Infusion Piperacillin Sod/Tazobactam 100 mls @ 200 mls/hr 08/21/17 12:00 08/25/17 13: 27 Sod 3.375 gm/ Sodium Chloride IV Infused Q6HR REINALDO Infusion Acetaminophen 100 mls @ 400 mls/hr 08/22/17 17:00 08/25/17 12:00 Ofirmev IV Infused Q6H REINALDO Infusion Potassium Chloride/Dextrose/Sod Cl 1,000 mls @ 30 mls/hr 08/24/17 19:58 08/25 11:42 IV 30 mls/hr .[id number] REINALDO Administration Ondansetron HCl 4 mg 08/21/17 09:53 08/25/17 14:59 Zofran Inj IVP 4 mg Q4HR PRN Administration Nausea / Vomiting Sodium Chloride 10 ml 08/21/17 17:00 08/25/17 10:39 Normal Saline Flush 0.9% IVP Not Given 0100,0900,1700 REINALDO Sodium Chloride 10 ml 08/21/17 09:46 08/25/17 11:43 Normal Saline Flush 0.9% IVP 10 ml PRN PRN Administration NEEDED PER PROVIDER ORDERS - Physical Exam Wound/Incisions: positive: Healing well, Other (Drain output is strictly serous. ) General Appearance: positive: No acute distress Eyes Bilateral: positive: No lid inflammation, Conjunctivae nml, No scleral icterus ENT: positive: No signs of dehydration Respiratory: positive: Chest non-tender, Breath sounds nml Cardiovascular: positive: Regular rate & rhythm Abdomen: positive: Nml bowel sounds (Slightly hyperactive.) Skin: positive: Color nml Extremities: positive: Non-tender Impression/Plan - Problem List Problem List: D4 s/p laparoscopic appendectomy and placement of drain for perforated appendicitis with fecalent peritonitis 1) FEN Heplocked IV and started general diet. Treat diarrhea with fluids. 2) ID Switch from IV Abx to orals. Check CBC in AM. Check diarrhea for Clostridium difficile - doubt it will be positive. 3) Pain Controlled with current regimen. Switch to orals. 4) DVT Ambulation should prevent. Will continue to follow.
[2017-08-25] MEDS ORDERED: ACETAMINOPHEN 500 MG TABLET PO PRN (17:06)
[2017-08-25] MEDS: metroNIDAZOLE 250 MG TABLET PO SCH (17:31)
[2017-08-25] MEDS: levoFLOXacin 250 MG TABLET PO SCH (17:31)
[2017-08-26] MEDS: metroNIDAZOLE 250 MG TABLET PO SCH ×4 (00:52→18:07)
[2017-08-26] MEDS: oxyCODONE 5 MG TABLET PO PRN ×4 (00:52→17:17)
[2017-08-26] MEDS: SODIUM CHLORIDE FLUSH 0.9% 10 ML SYRINGE IVP SCH ×2 (04:23→11:54)
[2017-08-26 05:45] LABS: EOSINOPHILS # (AUTO) 0.1 10^3/uL (0.0-0.7); HGB - HEMOGLOBIN 11.3 g/dL (12.0-16.0); PLT - PLATELET COUNT 324 10^3/uL (130-450)
[2017-08-26 05:53] LABS: BASOPHILS % (AUTO) 0.2 %; EOSINOPHILS % (AUTO) 0.6 %; LYMPHOCYTES # (AUTO) 1.1 10^3/uL (1.5-3.5); LYMPHOCYTES % (AUTO) 8.6 %; MEAN CORPUSCULAR HEMOGLOBIN 28.2 pg (27.0-31.0); MEAN CORPUSCULAR HGB CONC 32.2 g/dL (32.0-36.0); MEAN CORPUSCULAR VOLUME 87.7 fL (81.0-99.0); MEAN PLATELET VOLUME 8.6 fL (7.9-10.8); MONOCYTES % (AUTO) 8.2 %; NEUTROPHILS # (AUTO) 10.5 10^3/uL (1.5-6.6); NEUTROPHILS % (AUTO) 82.4 %; RED BLOOD COUNT 3.99 10^6/uL (4.20-5.40); RED CELL DISTRIBUTION WIDTH 14.4 % (12.0-15.0); WHITE BLOOD COUNT 12.7 x10^3/uL (4.8-10.8)
[2017-08-26 05:55] LABS: ALBUMIN 2.5 g/dL (3.2-5.5); ALBUMIN/GLOBULIN RATIO 0.8 (1.0-2.2); BILIRUBIN,TOTAL 0.5 mg/dL (0.2-1.0); CALCIUM 7.8 mg/dL (8.5-10.3); CREATININE 0.6 mg/dL (0.4-1.0); TOTAL PROTEIN 5.6 g/dL (6.7-8.2)
--- NOTE | 2017-08-26 13:31 | PROVIDER PROGRESS NOTE ---
Subjective - General Admit Date: 08/21/17 Procedure Date: 08/21/17 Post Op Days: 5 Procedure Performed: Laparoscopic appendectomy with placement drain - Review of Systems Wound/Incisions: positive: Healing well (Ecchymosis has mostly resolved.) Drain Type: [place] Drain Output Description: Serous Approximate mls Output: 60 General: positive: Other (Feels markedly better.). negative: Appetite HEENT: positive: No symptoms Pulmonary: positive: No symptoms Cardiovascular: positive: No symptoms Gastrointestinal: positive: Abdominal pain (Minimal.), Diarrhea (Still with some diarrhea - unable to get specimen because it was mixed with urine although this should not be a problem.) Genitourinary: positive: Retention (Measured 300 mL urinated 200 mL. Will follow.) Musculoskeletal: positive: No symptoms Skin: positive: No symptoms Psychiatric: positive: No symptoms Objective - Patient Data Reviewed Vital Signs: Yes Vital Signs: Vital Signs x48h Temp Pulse Resp BP Pulse Ox 08/26/17 07:40 37.2 C 75 19 117/66 96 Intake & Output: Intake and Output Totals x24h 08/24/17 08/25/17 08/26/17 23:59 23:59 23:59 Intake Total 4521.753 2275.75 1100 Output Total 1560 5120 3560 Balance 2961.753 -2844.25 -2460 - Lab Results Lab Results: 08/26/17 05:30 08/26/17 05:30 Other Lab Results: Lab Results x24hrs 08/26/17 08/26/17 Range/Units 05:30 05:30 WBC 12.7 H (4.8-10.8) x10^3/uL RBC 3.99 L (4.20-5.40) 10^6/uL Hgb 11.3 L (12.0-16.0) g/dL Hct 35.0 L (37.0-47.0) % MCV 87.7 (81.0-99.0) fL MCH 28.2 (27.0-31.0) pg MCHC 32.2 (32.0-36.0) g/dL RDW 14.4 (12.0-15.0) % Plt Count 324 (130-450) 10^3/uL MPV 8.6 (7.9-10.8) fL Neut # 10.5 H (1.5-6.6) 10^3/uL Lymph # 1.1 L (1.5-3.5) 10^3/uL [place] # 1.0 (0.0-1.0) 10^3/uL Eos # 0.1 (0.0-0.7) 10^3/uL Baso # 0.0 (0.0-0.1) 10^3/uL Absolute Nucleated RBC 0.00 x10^3/uL Nucleated RBC % 0.0 /100WBC Sodium 134 L (135-145) mmol/L Potassium 3.3 L (3.5-5.0) mmol/L Chloride 103 (101-111) mmol/L Carbon Dioxide 24 (21-32) mmol/L Anion Gap 7.0 (6-13) BUN 6 (6-20) mg/dL Creatinine 0.6 (0.4-1.0) mg/dL Estimated GFR (MDRD) 107 (>89) Glucose 96 (70-100) mg/dL Calcium 7.8 L (8.5-10.3) mg/dL Total Bilirubin 0.5 (0.2-1.0) mg/dL AST 70 H (10-42) IU/L ALT 35 (10-60) IU/L Alkaline Phosphatase 65 (42-121) IU/L Total Protein 5.6 L (6.7-8.2) g/dL Albumin 2.5 L (3.2-5.5) g/dL Globulin 3.1 (2.1-4.2) g/dL Albumin/Globulin Ratio 0.8 L (1.0-2.2) - Current Medications Current Medications: Current Medications Generic Name Dose Route Start Last Admin Trade Name Freq PRN Reason Stop Dose Admin Acetaminophen 500 mg 08/25/17 17:06 08/25/17 17:31 Tylenol PO 500 mg Q4HR PRN Administration Pain or Fever > 38C (100.4F) Potassium Chloride/Dextrose/Sod Cl 1,000 mls @ 30 mls/hr 08/24/17 19:58 08/25 11:42 IV 30 mls/hr .[id number] REINALDO Administration Levofloxacin 500 mg 08/25/17 18:00 08/25/17 17:31 Levaquin PO 500 mg Q24H REINALDO Administration Metronidazole 250 mg 08/25/17 18:00 08/26/17 11:54 Flagyl PO 250 mg Q6HR REINALDO Administration Oxycodone HCl 5 mg 08/25/17 17:06 08/26/17 11:54 Roxicodone PO 5 mg Q4HR PRN Administration PAIN Sodium Chloride 10 ml 08/21/17 17:00 08/26/17 11:54 Normal Saline Flush 0.9% IVP 10 ml 0100,0900,1700 REINALDO Administration Sodium Chloride 10 ml 08/21/17 09:46 08/25/17 11:43 Normal Saline Flush 0.9% IVP 10 ml PRN PRN Administration NEEDED PER PROVIDER ORDERS - Physical Exam Wound/Incisions: positive: Healing well General Appearance: positive: No acute distress Eyes Bilateral: positive: No lid inflammation, Conjunctivae nml, No scleral icterus ENT: positive: No signs of dehydration Neck: positive: Trachea midline Respiratory: positive: Chest non-tender, No respiratory distress, Breath sounds nml Cardiovascular: positive: Regular rate & rhythm Abdomen: positive: Nml bowel sounds Skin: positive: Color nml Extremities: positive: Non-tender, Full ROM, Nml appearance Neurologic/Psychiatric: positive: Oriented x3 Impression/Plan - Problem List Problem List: D5 s/p laparoscopic appendectomy for perforated appendicitis with fecalent peritonitis Discharge home on oral antibiotics and with oral pain medication with follow up with me in 10-14 days. Remove drain prior to discharge. Patient to call me with surgical questions or concerns. No lifting > 15 pounds for 6 weeks to help prevent hernia formation at umbilicus. Pathology discussed with patient.
--- NOTE | 2017-08-26 13:37 | Discharge Plan ---
Discharge Plan Disposition: Home, Self Care Condition: Good Prescriptions: oxyCODONE [Roxicodone] 5 mg PO Q4HR PRN #30 tablet PRN Reason: Pain metroNIDAZOLE [Flagyl] 250 mg PO Q6HR 10 Days #40 tablet levoFLOXacin [Levaquin] 500 mg PO Q24H 10 Days #10 tablet Diet: Regular Activity Restrictions: No Restrictions Shower Restrictions: No Driving Restrictions: Yes (Do not drive while taking pain medications.) Instruction Topics: Appendectomy, Appendicitis Additional Instructions or Follow Up instructions: Call me or my office with any surgical questions or concerns. . No Smoking: If you smoke, Please STOP! Call for help. Follow-up with: Shadi Garcia MD [Provider Admit Priv/Credential] -
--- NOTE | 2017-08-26 13:54 | DISCHARGE SUMMARY ---
"Discharge Summary Admit Date: 08/21/17 Discharge Date: 08/26/17 Discharging Provider: MD Radha Code Status: Attempt Resuscitation Condition at Discharge: Good Discharge Disposition: 01 Home, Self Care - DIAGNOSES Admission Diagnoses: perforated appendicitis with fecalent peritonitis treated with laparoscopic appendectomy and placement of drain 08/21/17 by myself (MD Radha) - HPI History of Present Illness: Patient admitted on 08/21/17 with a several day history of pain that then localized to the right lower quadrant with radiographic and laboratory evidence supporting the diagnosis of perforated appendicitis. - CONSULTS | PROCEDURES Consultations: Me from Dr. Marino Procedures: See above. - ALLERGIES Allergies/Adverse Reactions: Allergies Allergy/AdvReac Type Severity Reaction Status Date / Time No Known Drug Allergies Allergy Verified 08/21/17 04:17 - MEDICATIONS Home Medications: Ambulatory Orders Medication Instructions Recorded Confirmed Levothyroxine Sodium 175 mcg PO QDAC 08/21/17 08/21/17 levoFLOXacin [Levaquin] 500 mg PO Q24H 10 Days #10 tablet 08/26/17 metroNIDAZOLE [Flagyl] 250 mg PO Q6HR 10 Days #40 tablet 08/26/17 oxyCODONE [Roxicodone] 5 mg PO Q4HR PRN #30 tablet 08/26/17 - PHYSICAL EXAM AT DISCHARGE General Appearance: positive: No acute distress Eyes Bilateral: positive: No lid inflammation, Conjunctivae nml, No scleral icterus ENT: positive: No signs of dehydration Neck: positive: Trachea midline Respiratory: positive: Chest non-tender, No respiratory distress, Breath sounds nml Cardiovascular: positive: Regular rate & rhythm Abdomen: positive: Nml bowel sounds, Other (Wounds clean and dry - will pull drain prior to discharge.) Skin: positive: Color nml Extremities: positive: Non-tender, Full ROM, Nml appearance Neurologic/Psychiatric: positive: Oriented x3 - LABS Result Diagrams: 08/26/17 05:30 08/26/17 05:30 - FOLLOW UP Follow Up: 10 - 14 days with me (MD Radha) - TIME SPENT Time Spent in Discharge (Minutes): 40"
[2017-08-26] MEDS: levoFLOXacin 250 MG TABLET PO SCH (18:07)
[2017-08-26 18:13] VITALS: BP 142/81
== END 2017-08-26 16:40 | disposition home or self-care (01) | DRG 340 ==
LOC: ED 04:08 → SDS 07:00 → MS2 09:46
PROVIDERS: ADMIT Surgery; ATTEND Surgery
PROC: 0DTJ4ZZ Resection of Appendix, Percutaneous Endoscopic Approach (ICD-10-PCS; principal; 2017-08-21 08:00)
DX: K35.2 Acute appendicitis with generalized peritonitis (principal); E03.9 Hypothyroidism, unspecified
CPT/HCPCS: 36415; 74177; 80053; 80170; 81001; 81003; 81025; 83690; 85025; 87086; 87493; 96361; 96365; 96367; 96375; 96376; 99283; 99284; 99285